=== PATIENT | female | born 1970 | race Caucasian/White ===

== ENCOUNTER → 2017-05-19 | Outpatient (CLI) | payer OTHER ==
[~2017-05-19] MED LIST: FLEXERIL5 MG PO; MOTRIN800 MG PO; VICODIN 5/5001 UDTAB PO
== END ==
LOC: MC.RAD 07:00
DX: Z12.31 Encounter for screening mammogram for malignant neoplasm of breast (principal)

== ENCOUNTER → 2019-02-04 | Outpatient (CLI) | payer BC | LOC: MC.RAD 07:30 | DX: Z12.31 Encounter for screening mammogram for malignant neoplasm of breast (principal); N63.10 Unspecified lump in the right breast, unspecified quadrant ==

== ENCOUNTER → 2019-02-09 | Outpatient (CLI) | payer BC | LOC: MC.RAD 06:54 | DX: N64.89 Other specified disorders of breast (principal) ==

== ENCOUNTER → 2019-09-20 | Outpatient (CLI) | payer BC | LOC: MC.RAD 08:49 | DX: N64.9 Disorder of breast, unspecified (principal) | CPT/HCPCS: G0279 ==

== ENCOUNTER → 2020-05-12 | Outpatient (CLI) | payer BC | LOC: MC.RAD 07:00 | DX: Z12.31 Encounter for screening mammogram for malignant neoplasm of breast (principal) ==

== ENCOUNTER → 2021-07-10 | Outpatient (CLI) | payer BC | LOC: MC.RAD 07-02 07:30 | DX: Z12.31 Encounter for screening mammogram for malignant neoplasm of breast (principal) ==

== ENCOUNTER → 2022-09-25 | Outpatient (CLI) | payer BC | LOC: MC.RAD 10:56 | DX: Z12.31 Encounter for screening mammogram for malignant neoplasm of breast (principal) ==